=== PATIENT | male | born 1970 | race Caucasian/White ===

== ENCOUNTER 2016-05-31 08:06 | Emergency (ER) | payer OTHER ==
[~2016-05-31] VITALS: Ht 175.3 cm; Wt 118.0 kg
[~2016-05-31 08:06] MED LIST: DULCOLAX5 MG PO; FLEXERIL10 MG PO; TRAMADOL HCL50 MG PO; TYLENOL WITH C1 EACH PO
[2016-05-31] MEDS ORDERED: PRILOSEC20 MG PO (11:33)
[2016-05-31] MEDS ORDERED: IBUPROFEN800 MG PO (12:03)
[2016-05-31] MEDS ORDERED: FLEXERIL10 MG PO (12:03)
[2016-05-31 12:41] VITALS: BP 128/84
== END 2016-05-31 12:42 | disposition home or self-care (01) ==
LOC: EME 08:06
PROC: 3E0234Z Introduction of Serum, Toxoid and Vaccine into Muscle, Percutaneous Approach (ICD-10-PCS; principal; 2016-05-31)
DX: S80.11XA Contusion of right lower leg, initial encounter (principal); S80.12XA Contusion of left lower leg, initial encounter; S80.811A Abrasion, right lower leg, initial encounter; S80.812A Abrasion, left lower leg, initial encounter; Y99.0 Civilian activity done for income or pay; W23.1XXA Caught, crushed, jammed, or pinched between stationary objects, initial encounter; Z23 Encounter for immunization; Z88.0 Allergy status to penicillin
CPT/HCPCS: 73590; 99281; 99283